=== PATIENT | male | born 1985 | race Caucasian/White ===

== ENCOUNTER 2025-04-04 08:00 | Outpatient (RCR) | payer BC, SELFPAY ==
--- NOTE | 2025-02-04 15:19 | OPREHPOC ---
Outpatient Therapy Plan of Care This is a Multidisciplinary Plan of Care that may contain components documented by all disciplines (PT, OT, and ST.) PT Problem 1 PT Problem #1 Knowledge Deficit PT Goal 1 Goal / Goal Update Pt will be independent in HEP Pt will verbalize understanding of diagnosis and prognosis Target Visit 8 PT Goal 1 Goal / Goal Update Pt will demonstrate full ROM without discomfort Target Visit 8 PT Problem 3 PT Problem #3 Impaired Flexibility PT Goal 1 Goal / Goal Update Pt will demonstrate improved pec minor flexibility to reduce strain on scapular muscles and postures Target Visit 8 PT Problem 4 PT Problem #4 Impaired Functional Mobility PT Goal 1 Goal / Goal Update Pt will demonstrate ability to perform shadow- boxing activities with appropriate scapular positioning to prevent irritation of shoulder Target Visit 16
--- NOTE | 2025-02-04 15:19 | PTOPEVAL1 ---
Assessment and note entered by Luiza Lopez, PT Evaluation Information Assessment Status Evaluation Diagnosis Left shoulder pain Other ICD-10 Condition Codes ( abnormal posture PT) Subjective Information left shoulder pain bothers with punching and fighting recreationally. right shoulder used to hurt on the back side, then babied it and it got better. when left shoulder started bothering, rested it. Then going back to fighting didn't ease into it and now the left side is painful ~5 months ago. Has not been to the gym in this amount of time. 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 Wears heavy canvas burn coats and donning these hurt s shoulder Reports has not hurt bad for a while, is doing better than was. But has not been performing recreational activities as he was Reported Pain Level Pain Score 1: Self Report Assessment PT Clinical Summary Pt presents with complaints of left shoulder pain that has persisted greater than six months. He had a previous similar issue with the right shoulder, rested it, and it resolved. He rested his left shoulder then returned to high level recreational activities without taking time to work back up to prior level causing irritation in the left shoulder again. Reports cross body movements such as reaching and punching are bothersome, as well as reaching posteriorly to don heavy jacket for work. Evaluation findings show normal ROM with mild impingement symptoms at end-range abduction> flexion, mildly reduced external rotator strength, tight pec minor musculature, and very passive postures with slumping rounded shoulders and forward head. All of which suggest impingement secondary to poor scapular kinematics causing irritation likely supraspinatus. Pt will benefit from physical therapy in order to educate on appropriate postural alignment, improve scapular awareness stabilization, and reduce irritation while assisting to return to high level sport activities without recurrence of impingement. Plan of Care Interventions Electrical Stimulation,Hot Pack/Cold Pack,Manual Therapy,Neuro Re-education,Patient/Caregiver Education,Therapeutic Activities,Therapeutic Exercise,Self-Care/Home Management,Ultrasound, Other Other Interventions taping, dry needling PT Services Indicated Yes Treatment Frequency and 1-2x weekly x 16 visits Duration These treatments will address the objective and functional deficits as defined above. The patient will be advanced safely and appropriately in order for the patient to progress towards his/her prior level of function. Additional exercises will be introduced and as well as a comprehensive home exercise program upon discharge, if needed, ?to ensure carryover of functional gains achieved in the clinic. This treatment plan has been reviewed and agreement upon by the patient.
--- NOTE | 2025-04-04 18:09 | PTOPDC ---
Assessment and note entered by Luiza Lopez, PT Evaluation Information Assessment Status Discharge Diagnosis Left shoulder pain Other ICD-10 Condition Codes ( abnormal posture PT) Subjective Information Pt reports went up to the gym the last two nights trying new exercises with the posterior shoulder. Was a little achy yesterday morning in the shoulder but today is normal workout achy. Did some pec flys and had some burn in the front of the shoulder but is normal work out achy today. Feels the achy more in additional muscles not just in the upper neck. Reports every once in a while will get a twinge in the right shoulder in the same area as the left. Perceived improvement left a shoulder 90-95% Reported Pain Level Pain Score 0: Self Report Assessment PT Clinical Summary Pt has made significant progress with therapy regarding left shoulder instability and impingement. His postures are greatly improved, strength greatly improved, muscular patterning improved as well. Pt also demonstrates clear understanding scapulohumeral kinematics and scapular position. Pt has met all his goals for therapy including returning to gym for recreational fitness and boxing/fighting activities. Thus patient is being discharged from therapy for completion of program. Plan of Care PT Services Indicated No
== END 2025-04-07 08:17 | disposition home or self-care (01) ==
LOC: ANHHIPT 08:00
PROVIDERS: PCP Nurse Practitioner Family; Visit Provider Nurse Practitioner Family
DX: M25.512 Pain in left shoulder (principal)
CPT/HCPCS: 97014; 97110; 97112; 97140; 97161; 97530; 97750; G0283